=== PATIENT | female | born 1995 | race American Indian/Alaskan Native ===

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

== ENCOUNTER 2021-03-28 18:32 | Emergency (ER) | payer MEDICAID ==
[2021-03-28 18:40] VITALS: BP 125/69
--- NOTE | 2021-03-28 18:57 | Emergency Department Report ---
ED ENT HPI - General Chief complaint: Earache Stated complaint: LEFT EARACHE Time Seen by Provider: 03/28/21 18:47 Source: patient Mode of arrival: Ambulatory Limitations: No Limitations - History of Present Illness Initial comments: 25-year-old -[place] female who is 9 months presents to the emergency room for left ear pain that started last night. Patient denies any drainage denies any fever chills. She denies any trauma no loss of hearing. She is 1 para 0 no complaints of issues. MD complaint: ear pain -: Last night Location: L ear Severity: moderate Consistency: constant Improves with: none Worsens with: none Associated Symptoms: denies: fever, pain with swallowing, sore throat, discharge from ear - Related Data Previous Rx's Medication Instructions Recorded Last Taken Type Amoxicillin/Potassium Clav 1 each PO Q12H 7 Days #14 tablet 03/28/21 Unknown Rx [Augmentin 875-125 Tablet] Allergies Allergy/AdvReac Type Severity Reaction Status Date / Time adhesive AdvReac Rash Verified 05/30/16 16:09 ED Dental HPI - General Chief complaint: Earache Stated complaint: LEFT EARACHE Time Seen by Provider: 03/28/21 18:47 Source: patient Mode of arrival: Ambulatory Limitations: No Limitations - Related Data Previous Rx's Medication Instructions Recorded Last Taken Type Amoxicillin/Potassium Clav 1 each PO Q12H 7 Days #14 tablet 03/28/21 Unknown Rx [Augmentin 875-125 Tablet] Allergies Allergy/AdvReac Type Severity Reaction Status Date / Time adhesive AdvReac Rash Verified 05/30/16 16:09 ED Review of Systems ROS: Stated complaint: LEFT EARACHE Other details as noted in HPI Comment: All other systems reviewed and negative ED Past Medical Hx - Past Medical History Hx Hypertension: No Hx GERD: Yes (MILD , FOOD RELATED) Hx Asthma: Yes ( YOUNG CHILD ONLY) - Surgical History Hx Breast Surgery: Yes (BREAST BX- LOCAL) - Social History Smoking Status: Never Smoker - Medications Home Medications: Home Medications Medication Instructions Recorded Confirmed Last Taken Type Amoxicillin/Potassium Clav 1 each PO Q12H 7 Days #14 tablet 03/28/21 Unknown Rx [Augmentin 875-125 Tablet] ED Physical Exam - General Limitations: No Limitations General appearance: alert, in no apparent distress - Head Head exam: Present: atraumatic, normocephalic - Eye Eye exam: Present: normal appearance - Expanded ENT Exam Expanded TM/Canal exam: Erythema: Left TM - Neck Neck exam: Present: normal inspection, full ROM - Respiratory Respiratory exam: Absent: respiratory distress, accessory muscle use - Cardiovascular Cardiovascular Exam: Present: regular rate - Extremities Exam Extremities exam: Present: normal inspection, full ROM - Back Exam Back exam: Present: normal inspection, full ROM - Neurological Exam Neurological exam: Present: alert, oriented X3, normal gait - Psychiatric Psychiatric exam: Present: normal affect, normal mood - Skin Skin exam: Present: warm, dry, intact, normal color. Absent: rash ED Course Vital Signs 03/28/21 18:39 Temperature 99.1 F Pulse Rate 116 H Respiratory 22 Rate Blood Pressure 125/69 [Right] O2 Sat by Pulse 97 Oximetry ED Medical Decision Making - Medical Decision Making 25-year-old -[place] female who is 9 months presents to the emergency room for left ear pain that started last night. Patient denies any drainage denies any fever chills. She denies any trauma no loss of hearing. S he is 1 para 0 no complaints of issues. Left ear appears to have otitis media will treat with Augmentin. Instructed patient she can take Tylenol for pain management. Critical care attestation.: If time is entered above; I have spent that time in minutes in the direct care of this critically ill patient, excluding procedure time. ED Disposition Clinical Impression: Otitis media of left ear Disposition: 01 HOME / SELF CARE / HOMELESS Is pt being admited?: No Does the pt Need Aspirin: No Condition: Stable Instructions: Otitis Media, Adult, [id number] Additional Instructions: Complete antibiotics as prescribed. Tylenol as needed for pain. Please be sure to increase your water intake while taking medication. Follow-up with your THERAPEUTIC CASE MANAGER any further concerns. Prescriptions: Amoxicillin/Potassium Clav [Augmentin 875-125 Tablet] 1 each PO Q12H 7 Days #14 tablet Referrals: TOBY YAP MD [Primary Care Provider] - 3-5 Days LEONIDES LAWRENCE MD [Referring] - 3-5 Days Time of Disposition: 18:56
== END 2021-03-28 19:13 | disposition home or self-care (01) ==
LOC: ED 18:32
DX: H66.92 Otitis media, unspecified, left ear (principal); J45.909 Unspecified asthma, uncomplicated; K21.9 Gastro-esophageal reflux disease without esophagitis
CPT/HCPCS: 99282

== ENCOUNTER 2021-11-20 09:07 | Emergency (ER) | payer MEDICAID | END 2021-11-21 16:07 | disposition left against medical advice (07) | LOC: ED 09:07 | DX: R21 Rash and other nonspecific skin eruption (principal); Z53.21 Procedure and treatment not carried out due to patient leaving prior to being seen by health care provider ==